=== PATIENT | male | born 1980 | race African-American/Black ===

== ENCOUNTER 2017-03-06 17:10 | Emergency (ER) | payer SELFPAY ==
[2017-03-06 17:23] VITALS: BP 138/81; PULSE 65; TEMP 97.9; BMI 29.2
--- NOTE | 2017-03-06 17:23 | PDOC ---
Rapid Medical Evaluation Time Seen by Provider: 03/06/17 17:18 Medical Evaluation: 03/06/17 17:18 I have performed a brief in-person evaluation of this patient. The patient presents with a chief complaint of: left axilla abscess Pertinent physical exam findings: Skin: Left axilla abscess I have ordered the following: N/A The patient will proceed to the ED for further evaluation. Discharge Disposition - Diagnosis Abscess - Referrals - Patient Instructions - Post Discharge Activity
--- NOTE | 2017-03-06 17:43 | PDOC ---
History of Present Illness - General History Source: Patient Exam Limitations: No Limitations <Thiago Mercer - Last Filed: 03/06/17 18:21> - General History Source: Patient - History of Present Illness Initial Comments: 03/06/17 20:07 Patient is a 36 y.o. male with no reported PMH who preesnts to our ED this evening c/o pain from a LUE axillary abscess. Patient states he noticed the abscess on Thursday morning and it became enlarged and painful prompting his visit to the ED. Patient denies any systemic signs of infection including fevers/chills and notes he shaves in the area likely prompting the abscess. NKDA Social: denies alcohol, denies nicotine, denies recreational drugs PMD: None, will refer to [facility] <Khushbu Farias - Last Filed: 03/06/17 20:46> - General Chief Complaint: Wound Stated Complaint: Left armpit boil Time Seen by Provider: 03/06/17 17:18 Past History <Thiago Mercer - Last Filed: 03/06/17 18:21> - Past Medical History COPD: No - Suicide/Smoking/Psychosocial Hx Smoking History: Never smoked Information on smoking cessation initiated: No Hx Alcohol Use: No Drug/Substance Use Hx: No Substance Use Type: None <Khushbu Farias - Last Filed: 03/06/17 20:46> - Past Medical History Allergies/Adverse Reactions: Allergies Allergy/AdvReac Type Severity Reaction Status Date / Time No Known Allergies Allergy Verified 03/06/17 17:23 Home Medications: Ambulatory Orders Sulfamethoxazole/Trimethoprim [Bactrim Ds Tablet] 1 each PO BID #14 tablet 03/06 Review of Systems - Review of Systems Constitutional: No: Chills, Fever Respiratory: No: Shortness of Breath Cardiac (ROS): No: Chest Pain ABD/GI: No: Constipated, Diarrhea, Nausea, Vomiting, Abdominal cramping All Other Systems: Reviewed and Negative <Khushbu Farias - Last Filed: 03/06/17 20:46> *Physical Exam - Vital Signs Last Vital Signs Temp Pulse Resp BP Pulse Ox 97.9 F 65 19 138/81 98 03/06/17 17:20 03/06/17 17:20 03/06/17 17:20 03/06/17 17:20 03/06/17 17:20 <SylvieThiago - Last Filed: 03/06/17 18:21> - Vital Signs Last Vital Signs Temp Pulse Resp BP Pulse Ox 97.9 F 65 19 138/81 98 03/06/17 17:20 03/06/17 17:20 03/06/17 17:20 03/06/17 17:20 03/06/17 17:20 - Physical Exam General Appearance: Yes: Nourished, Appropriately Dressed Respiratory/Chest: positive: Lungs Clear Cardiovascular: positive: S1, S2 Extremity: positive: Other (L axilla: 0.5 cm pinpoint lesion with 5 cm area of induration, no appreciable erythema, miminal warmth) Neurologic: positive: Fully Oriented, Alert <Khushbu Farias - Last Filed: 03/06/17 20:46> Medical Decision Making - Medical Decision Making 03/06/17 20:39 Patient is a 36 y.o. male who presents with a LUE abscess with no systemic signs of infection (no fevers/chills) and no signs of cellulitis (non- erythematous, minimally warm to palpation). I+D w/iodoform packing and patient discharged with instruction to return to ED in 48 hours for wound check as well as 7 day course of Bactrim for MRSA coverage. Patient also given referral to resident clinic to establish primary care. <Khushbu Farias - Last Filed: 03/06/17 20:46> *DC/Admit/Observation/Transfer <Thiago Mercer - Last Filed: 03/06/17 18:21> - Discharge Dispostion Admit: No <Khushbu Farias - Last Filed: 03/06/17 20:46> Diagnosis at time of Disposition: Abscess - Discharge Dispostion Disposition: HOME Condition at time of disposition: Good - Prescriptions Prescriptions: Sulfamethoxazole/Trimethoprim [Bactrim Ds Tablet] 1 each PO BID #14 tablet - Referrals Referrals: Rolly Valenzuela MD [Staff Physician] - - Patient Instructions Additional Instructions: An antibiotic has been called to your pharmacy. Please take the entire 7 day course of antibiotics. Please return to the Emergency Department in 48-72 hours for evaluation of your wound. If you develop fevers, chills or any new/worsening or concerning symptoms, please return to the Emergency Department immediately. A referral has been provided to primary care. Please make an appointment for general medical evaluation.
--- NOTE | 2017-03-06 18:22 | PDOC ---
Attending Attestation - Resident Resident Name: Khushbu Farias - ED Attending Attestation I have performed the following: I have examined & evaluated the patient, The case was reviewed & discussed with the resident, I agree w/resident's findings & plan, Exceptions are as noted - Medical Decision Making 03/06/17 18:22 Vital Signs Temp Pulse Resp BP Pulse Ox 97.9 F 65 19 138/81 98 03/06/17 17:20 03/06/17 17:20 03/06/17 17:20 03/06/17 17:20 03/06/17 17:20 36 year old male with no past medical history presents with left axillary abscess. Patient shaves armpits. Noted yesterday that he had a draining abscess. No fevers, chills. Resident Dr. Farias will perform I&D and obtain wound culture. Diagnosis: abscess <Thiago Mercer - Last Filed: 03/06/17 18:22> - HPI HPI: 03/06/17 18:25 The patient is a 36 year old male, with no significant past medical history, who presents to the emergency department with an abscess to the left axilla since yesterday. Patient reports he was shaving is axilla yesterday, when he noticed a boil to his left armpit. He reports associated purulent drainage of the boil. He denies any associated fever, chills, nausea, or vomiting. He denies any other symptoms at this time. - Physicial Exam PE: 03/06/17 18:25 GENERAL: Awake, alert, and fully oriented, in no acute distress HEAD: No signs of trauma EYES: PERRLA, EOMI, sclera anicteric, conjunctiva clear ENT: Auricles normal inspection, hearing grossly normal, nares patent, oropharynx clear without exudates. Moist mucosa NECK: Normal ROM, supple, no lymphadenopathy, JVD, or masses EXTREMITIES: Normal range of motion, no edema. No clubbing or cyanosis. No cords, erythema, or tenderness NEUROLOGICAL: Cranial nerves II through XII grossly intact. Normal speech, normal gait SKIN: 4x4 cm skin abscess to the left axilla. Otherwise warm, Dry, normal turgor , no rashes or lesions noted. - Medical Decision Making Documentation prepared by Kandy Doss, acting as medical driver for Thiago Mercer MD, /DO. <Knady Doss - Last Filed: 03/06/17 18:25>
== END 2017-03-06 18:50 | disposition home or self-care (01) ==
LOC: JER 17:10
PROC: 0X950ZZ Drainage of Left Axilla, Open Approach (ICD-10-PCS; principal; 2017-03-06)
DX: L02.412 Cutaneous abscess of left axilla (principal)
CPT/HCPCS: 87070; 87205; 99282-25

== ENCOUNTER 2017-03-09 08:35 | Emergency (ER) | payer SELFPAY ==
[2017-03-09 08:38] VITALS: BP 137/73; PULSE 60; TEMP 97.8; BMI 29.2
--- NOTE | 2017-03-09 09:05 | PDOC ---
Suture Removal/Wound Check HPI - History of Present Illness Chief Complaint: Revisit,Wound Recheck Stated Complaint: WOUND CHECK Time Seen by Provider: 03/09/17 08:51 History Source: Yes: Patient Exam Limitations: Yes: No Limitations Treated at: [facility] ED - Previous ED Treatment Type of procedure performed on last visit: Yes: I&D of Abscess Tetanus Immunization: Yes: Up to Date Antibiotics Prescribed: No - Onset of Previous Treatment Comment:: 03/09/17 12:10 Patient came for reevaluation of left axillary wound. Was incised and drained here 2 days ago with packing placed. Started on Bactrim which patient has continued to take. States swelling is much improved, much less pain, has not drained much. States was told could be possible folliculitis from shaving arm hair. Past History - Travel Traveled outside of the country in the last 30 days: No Close contact w/someone who was outside of country & ill: No - Past Medical History Allergies/Adverse Reactions: Allergies Allergy/AdvReac Type Severity Reaction Status Date / Time No Known Allergies Allergy Verified 03/09/17 08:38 Home Medications: Ambulatory Orders Sulfamethoxazole/Trimethoprim [Bactrim Ds Tablet] 1 each PO BID #14 tablet 03/06 COPD: No - Suicide/Smoking/Psychosocial Hx Smoking History: Never smoked Information on smoking cessation initiated: No Hx Alcohol Use: No Drug/Substance Use Hx: No Substance Use Type: None Suture Removal/Wound Check PE - Physical Exam Laceration/Wound Check Symptoms: reports: Pain Current Severity Level: None Maximum Severity Level: None *Review of Systems - Review of Systems Able to Perform ROS?: Yes Constitutional: Yes: See HPI. No: Symptoms Reported, Fever, Malaise HEENTM: No: Symptoms Reported Integumentary: Yes: Symptoms Reported, See HPI Neurological: Yes: See HPI. No: Symptoms reported, Headache All Other Systems: Reviewed and Negative Medical Decision Making - Medical Decision Making 03/09/17 09:12 Left axillary abscess healing well, packing has been removed, Will cont meds. and F/U with Surgery 03/09/17 09:15 *DC/Admit/Observation/Transfer Diagnosis at time of Disposition: Wound check, abscess - Discharge Dispostion Disposition: HOME Condition at time of disposition: Stable Admit: No - Referrals - Patient Instructions Printed Discharge Instructions: How to Care for a Surgical Wound - Post Discharge Activity
== END 2017-03-09 09:20 | disposition home or self-care (01) ==
LOC: JERFT 08:35
DX: L02.412 Cutaneous abscess of left axilla (principal)
CPT/HCPCS: 99281-25